=== PATIENT | male | born 1955 | race Caucasian/White ===

== ENCOUNTER → 2021-05-28 | Outpatient (CLI) | payer MEDICARE ==
[~2021-05-28] MED LIST: ASPIRIN CHEWABL81 MG PO; ELIQUIS2.5 MG PO; FLOMAX 0.4 MG0.4 MG PO; ISOSORBIDE DINI30 MG PO; LIPITOR TAB 2020 MG PO; METFORMIN HCL500 MG PO; METOPROLOL SUCC50 MG PO; OLANZAPINE20 MG PO; PLAVIX 75 MG TA75 MG PO; PROTONIX40 M1 PO; THERAGRAN M TAB1 EA PO; VENLAFAXINE HCL75 MG PO; VITAMIN B-1100 M1 PO
== END ==
LOC: KOH-I 09:11
DX: F17.210 Nicotine dependence, cigarettes, uncomplicated (principal)
CPT/HCPCS: 71271

== ENCOUNTER → 2021-06-19 | Outpatient (CLI) | payer MEDICARE | LOC: US 09:00 | DX: K76.0 Fatty (change of) liver, not elsewhere classified (principal); I65.23 Occlusion and stenosis of bilateral carotid arteries | CPT/HCPCS: 76700; 93880 ==